=== PATIENT | male | born 1950 | race Caucasian/White ===

== ENCOUNTER 2019-01-18 08:35 | Outpatient (CLI) | payer OTHER ==
--- NOTE | 2019-01-19 11:26 | CARDIAC PROCEDURE NOTE ---
DATE OF SERVICE: 01/18/2019 Physician: Octavia Singh MD, [facility] INDICATION: Dyspnea on exertion. CARDIAC RISK FACTORS: Male gender, advanced age, family history of hypertension, hyperlipidemia, hypertension. PROCEDURE: After signing informed consent, the patient underwent a treadmill stress test with nuclear myocardial perfusion imaging. RESTING HEART RATE: 68. PEAK HEART RATE: 114 (75% predicted maximum heart rate for age). RESTING BLOOD PRESSURE: 124/70. PEAK BLOOD PRESSURE: 170/65. PROCEDURE: The patient exercised for 3 minutes 57 seconds on a modified-Jarred protocol treadmill stress test. The patient developed shortness of breath at the end of stage 1 and could only exercise for 57 seconds into stage 2. This was a symptom-limited test, as he developed shortness of breath and could not continue; the exercise was stopped before reaching target heart rate. Peak heart rate achieved was 114 (75% PMHR) and 2.9 METs. He had no chest pain. Oxygen saturation was 98% at peak on room air. RESTING EKG: Normal sinus rhythm, left atrial enlargement, early R/S transition. EKG AT PEAK: No new ST or T-wave changes. SUMMARY 1. Abnormal resting EKG. 2. Poor exercise tolerance. 3. No ischemic changes by EKG criteria on this treadmill stress test. 4. Nuclear images reported separately. 5. If imaging shows no ischemia, it may be due to insufficient heart rate response, and then the test should be repeated using pharmaceutical stress test with imaging. cc: Hillary Reyes MD TD: 01/18/2019 12:53 MTDD
--- NOTE | 2019-01-19 13:14 | Nuclear Medicine Report ---
Reason: DYSPNEA ON EXERTION Procedure Date: 01/18/2019 Accession Number: [id number] / [id number] Procedure: NM - Myocardial Perfusion STR/RST CPT Code: FULL RESULT: EXAM: MYOCARDIAL PERFUSION STRESS AND REST EXERCISE EXAM DATE: 01/18/2019 03:56 PM. CLINICAL HISTORY: Dyspnea on exertion. COMPARISON: None. TECHNIQUE: Patient given 10.3 mCi technetium 99m sestamibi IV for the rest portion of the study. Non-gated cardiac SPECT scintigraphy performed with multiplanar reformats. After this, patient was exercised on a Jarred treadmill protocol for 3 minutes 57 seconds, achieving a heart rate of 114 bpm which is 75% of the maximum predicted rate. Near peak exercise, patient given 43.6 mCi technetium 99m sestamibi IV. Subsequently, cardiac gated SPECT scintigraphy performed with multiplanar reformats, wall motion analysis, and left ventricular ejection fraction estimation. FINDINGS: There is mild decreased uptake in the inferior wall extending inferoseptal from mid ventricle to base on both stress and rest. Mild small fixed decreased uptake in the apical septum. No reversible defects are seen. Wall motion is uniform. Left ventricular ejection fraction estimated at 81%. IMPRESSION: 1. Moderate-sized focus of mild decreased uptake inferior wall extending inferoseptal from mid ventricle to base. This is fixed. Differential includes diaphragmatic defect versus old nontransmural infarct. 2. Small mild fixed defect apical septum, likely apical thinning. 3. No scintigraphic evidence of inducible ischemia. 4. Left ventricular ejection fraction estimated at 81%. RADIA
== END 2019-01-18 08:36 | disposition home or self-care (01) ==
LOC: DI 08:35
PROVIDERS: ATTEND Internal Medicine
DX: R94.31 Abnormal electrocardiogram [ECG] [EKG] (principal); R06.00 Dyspnea, unspecified; E78.5 Hyperlipidemia, unspecified; I10 Essential (primary) hypertension; Z82.49 Family history of ischemic heart disease and other diseases of the circulatory system
CPT/HCPCS: 78452; 93017; A9500

== ENCOUNTER 2020-07-29 23:55 | Outpatient (CLI) | payer MEDICARE, OTHER | END 2020-07-29 23:56 | disposition critical access hospital (66) | LOC: EMS 23:55 | PROVIDERS: ATTEND Surgery | DX: R50.9 Fever, unspecified (principal); R41.0 Disorientation, unspecified | CPT/HCPCS: A0425; A0427 ==

== ENCOUNTER 2020-07-30 00:10 | Emergency (ER) | payer MEDICARE, OTHER ==
--- NOTE | 2020-07-30 00:03 | ED Physician Documentation ---
History of Present Illness - Stated complaint Stated Complaint: WEAKNESS, FEVER - History obtained from History obtained from: Patient - Additonal information Additional information: 70-year-old male brought in by ambulance and his also is with him states that he is had a fever and a cough for the last 3 days and now is too weak to walk. Denies any other complaints reports he is otherwise healthy. Review of Systems Constitutional: reports: Fever Eyes: reports: Reviewed and negative Ears: reports: Reviewed and negative Nose: reports: Reviewed and negative Throat: reports: Reviewed and negative Cardiac: reports: Reviewed and negative Respiratory: reports: Cough GI: reports: Reviewed and negative : reports: Reviewed and negative Skin: reports: Reviewed and negative Musculoskeletal: reports: Reviewed and negative Neurologic: reports: Generalized weakness Psychiatric: reports: Reviewed and negative Endocrine: reports: Reviewed and negative Immunocompromised: reports: Reviewed and negative PD PAST MEDICAL HISTORY - Present Medications Home Medications: Ambulatory Orders Medication Instructions Recorded Confirmed Levothyroxine [Synthroid] 07/30/20 07/30/20 [place] Carbonate 300 mg PO QPM 07/30/20 07/30/20 Metoprolol Succinate 25 mg PO QPM 07/30/20 07/30/20 Nortriptyline [Pamelor] 50 mg PO HS 07/30/20 07/30/20 OLANZapine [Zyprexa] 15 PO QPM 07/30/20 - Allergies Allergies/Adverse Reactions: Allergies Allergy/AdvReac Type Severity Reaction Status Date / Time No Known Drug Allergies Allergy Verified 07/30/20 03:08 PD ED PE NORMAL - Vitals Vital signs reviewed: Yes - General General: Alert and oriented X 3, No acute distress, Well developed/nourished - HEENT HEENT: Atraumatic, PERRL, Moist mucous membranes, Pharynx benign - Neck Neck: Supple, no meningeal sign, No adenopathy, No JVD - Cardiac Cardiac: RRR, No murmur, Strong equal pulses - Respiratory Respiratory: No respiratory distress, Clear bilaterally - Abdomen Abdomen: Normal bowel sounds, Soft, Non tender, Non distended, No organomegaly, Other (No midline abdominal pulsatile mass) - Derm Derm: Warm and dry - Extremities Extremities: No deformity - Neuro Neuro: Alert and oriented X 3, 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, No motor deficit, No sensory deficit, Other (Generalized weakness but no pronator drift no unilateral weakness no focal deficits normal [id number] normal [id number] normal rapid alternating movements reflexes 2+ and symmetric throughout) - Psych Psych: Normal mood, Normal affect Results - Vitals Vitals: Vital Signs - 24 hr 07/30/20 07/30/20 07/30/20 00:35 03:12 03:33 Temperature 36.7 C Heart Rate 82 89 89 Respiratory 22 27 H 20 Rate Blood Pressure 138/76 H 134/79 H 133/75 H O2 Saturation 97 98 95 Oxygen O2 Source Room air - EKG (time done) 01:01 Rate: Other (no STEMI) - Labs Labs: Laboratory Tests 07/30/20 07/30/20 07/30/20 00:59 02:00 02:30 WBC 8.8 RBC 4.71 Hgb 13.0 L Hct 41.9 L MCV 89.0 MCH 27.6 MCHC 31.0 L RDW 13.9 Plt Count 190 MPV 10.2 Neut # (Auto) 7.0 H Lymph # (Auto) 0.8 L [place] # (Auto) 0.9 Eos # (Auto) 0.1 Baso # (Auto) 0.0 Absolute Nucleated RBC 0.00 Nucleated RBC % 0.0 PT INR APTT Sodium Potassium Chloride Carbon Dioxide Anion Gap BUN Creatinine Estimated GFR (MDRD) Glucose Lactic Acid Calcium Phosphorus Magnesium Total Bilirubin AST ALT Alkaline Phosphatase Total Creatine Kinase Troponin I High Sens B-Natriuretic Peptide Total Protein Albumin Globulin Albumin/Globulin Ratio Lipase TSH Urine Color YELLOW Urine Clarity CLEAR Urine pH 5.5 Ur Specific [place] 1.010 Urine Protein NEGATIVE Urine Glucose (UA) NEGATIVE Urine Ketones NEGATIVE Urine Occult Blood NEGATIVE Urine Nitrite NEGATIVE Urine Bilirubin NEGATIVE Urine Urobilinogen 0.2 (NORMAL) Ur Leukocyte Esterase NEGATIVE Ur Microscopic Review NOT INDICATED Urine Culture Comments NOT INDICATED Salicylates Acetaminophen Ethyl Alcohol Influenza A (Rapid) Negative Influenza B (Rapid) Negative 07/30/20 07/30/20 07/30/20 02:30 03:05 03:05 WBC RBC Hgb Hct MCV MCH MCHC RDW Plt Count MPV Neut # (Auto) Lymph # (Auto) [place] # (Auto) Eos # (Auto) Baso # (Auto) Absolute Nucleated RBC Nucleated RBC % PT 14.1 H INR 1.3 H APTT 27.0 Sodium 136 Potassium 4.2 Chloride 105 Carbon Dioxide 21 Anion Gap 10.0 BUN 11 Creatinine 1.2 Estimated GFR (MDRD) 60 L Glucose 125 H Lactic Acid Calcium 9.3 Phosphorus 3.0 Magnesium 2.1 Total Bilirubin 0.6 AST 25 ALT 16 Alkaline Phosphatase 81 Total Creatine Kinase 567 H Troponin I High Sens 5.1 B-Natriuretic Peptide Total Protein 7.2 Albumin 4.2 Globulin 3.0 Albumin/Globulin Ratio 1.4 Lipase 19 L TSH Urine Color Urine Clarity Urine pH Ur Specific [place] Urine Protein Urine Glucose (UA) Urine Ketones Urine Occult Blood Urine Nitrite Urine Bilirubin Urine Urobilinogen Ur Leukocyte Esterase Ur Microscopic Review Urine Culture Comments Salicylates < 6.0 Acetaminophen < 10 L Ethyl Alcohol < 5.0 Influenza A (Rapid) Influenza B (Rapid) 07/30/20 07/30/20 07/30/20 03:05 03:05 03:05 WBC RBC Hgb Hct MCV MCH MCHC RDW Plt Count MPV Neut # (Auto) Lymph # (Auto) [place] # (Auto) Eos # (Auto) Baso # (Auto) Absolute Nucleated RBC Nucleated RBC % PT INR APTT Sodium Potassium Chloride Carbon Dioxide Anion Gap BUN Creatinine Estimated GFR (MDRD) Glucose Lactic Acid 0.7 Calcium Phosphorus Magnesium Total Bilirubin AST ALT Alkaline Phosphatase Total Creatine Kinase Troponin I High Sens B-Natriuretic Peptide 52 Total Protein Albumin Globulin Albumin/Globulin Ratio Lipase TSH 0.95 Urine Color Urine Clarity Urine pH Ur Specific [place] Urine Protein Urine Glucose (UA) Urine Ketones Urine Occult Blood Urine Nitrite Urine Bilirubin Urine Urobilinogen Ur Leukocyte Esterase Ur Microscopic Review Urine Culture Comments Salicylates Acetaminophen Ethyl Alcohol Influenza A (Rapid) Influenza B (Rapid) PD MEDICAL DECISION MAKING - ED course Complexity details: reviewed old records, reviewed results, re-evaluated patient, d/w patient, d/w family ED course: 7-year-old male with generalized weakness and a fever at home he is afebrile here and well-appearing COVID screening test sent as well as chest x-ray which is unremarkable EKG is unremarkable lab work sent as well. Departure - Departure Disposition: 01 Home, Self Care Clinical Impression: Weakness, Cough Fever Qualifiers: Fever type: unspecified Qualified Code(s): R50.9 - Fever, unspecified Condition: Stable Instructions: ED Weakness UKO, ED Fever Unconf Cause Follow-Up: ARIADNE GONZALEZ MD [Primary Care Provider] - 07/30/20 Comments: Please follow-up with your primary care provider tomorrow for recheck. If you develop fever take either Tylenol or ibuprofen as needed for pain or fever. Return to the emergency department with any concerns.
[2020-07-30 01:03] LABS: BILIRUBIN,URINE NEGATIVE (NEGATIVE); GLUCOSE, URINE (UA) NEGATIVE (NEGATIVE); KETONES,URINE (UA) NEGATIVE (NEGATIVE); LEUKOCYTE ESTERASE, URINE NEGATIVE (NEGATIVE); NITRITE,URINE NEGATIVE (NEGATIVE); OCCULT BLOOD,URINE NEGATIVE (NEGATIVE); PH,URINE 5.5 PH (5.0-7.5); PROTEIN,URINE NEGATIVE (NEGATIVE); UROBILINOGEN,URINE 0.2 (NORMAL) E.U./dL (NORMAL)
[2020-07-30 01:04] LABS: CLARITY,URINE CLEAR (CLEAR)
[2020-07-30] MEDS ORDERED: SODIUM CHLORIDE 0.9% 1,000 ML IV STA (01:19)
[2020-07-30 02:52] LABS: BASOPHILS % (AUTO) 0.3 %; EOSINOPHILS # (AUTO) 0.1 10^3/uL (0.0-0.7); EOSINOPHILS % (AUTO) 0.9 %; LYMPHOCYTES # (AUTO) 0.8 10^3/uL (1.5-3.5); MEAN CORPUSCULAR HEMOGLOBIN 27.6 pg (27.0-31.0); MEAN PLATELET VOLUME 10.2 fL (7.4-11.4); MONOCYTES # (AUTO) 0.9 10^3/uL (0.0-1.0); MONOCYTES % (AUTO) 9.6 %; NEUTROPHILS % (AUTO) 79.5 %; PLT - PLATELET COUNT 190 10^3/uL (130-450); RED BLOOD COUNT 4.71 10^6/uL (4.70-6.10); RED CELL DISTRIBUTION WIDTH 13.9 % (12.0-15.0); WHITE BLOOD COUNT 8.8 x10^3/uL (4.8-10.8)
[2020-07-30 02:56] LABS: INR 1.3 (0.8-1.2); PT - PROTHROMBIN TIME 14.1 secs (9.9-12.6)
[2020-07-30 03:32] LABS: ACETAMINOPHEN < 10 ug/mL (10-30); ALBUMIN 4.2 g/dL (3.2-5.5); ALBUMIN/GLOBULIN RATIO 1.4 (1.0-2.2); ALKALINE PHOSPHATASE 81 IU/L (42-121); ALT ALANINE AMINOTRANSFERASE 16 IU/L (10-60); AST ASPARTATE AMINOTRANSFERASE 25 IU/L (10-42); BILIRUBIN,TOTAL 0.6 mg/dL (0.2-1.0); BUN - BLOOD UREA NITROGEN 11 mg/dL (6-20); CALCIUM 9.3 mg/dL (8.5-10.3); CARBON DIOXIDE - CO2 21 mmol/L (21-32); CHLORIDE 105 mmol/L (101-111); CK- CREATINE KINASE 567 IU/L (22-269); CREATININE 1.2 mg/dL (0.6-1.2); GLUCOSE 125 mg/dL (70-100); LIPASE 19 U/L (22-51); MAGNESIUM 2.1 mg/dL (1.7-2.8); SALICYLATE < 6.0 mg/dL; SODIUM 136 mmol/L (135-145); TOTAL PROTEIN 7.2 g/dL (6.7-8.2)
[2020-07-30 04:14] VITALS: BP 128/77
[2020-07-30 04:27] LABS: MUDS CUTOFF CONCENTRATIONS CUTOFF CONC BELOW:
[2020-07-30 04:40] LABS: AMPHETAMINE SCREEN,URINE NEGATIVE (NEGATIVE); BENZODIAZEPINES SCREEN, URINE NEGATIVE (NEGATIVE); COCAINE SCREEN URINE NEGATIVE (NEGATIVE); METHADONE SCREEN, URINE NEGATIVE (NEGATIVE); METHAMPHETAMINES SCREEN, URINE NEGATIVE (NEGATIVE); OPIATE SCREEN, URINE NEGATIVE (NEGATIVE); OXYCODONE SCREEN, URINE NEGATIVE (NEGATIVE); PROPOXYPHENE SCREEN, URINE NEGATIVE (NEGATIVE); TRICYCLIC ANTIDEPRESSANT,URINE POSITIVE (NEGATIVE)
--- NOTE | 2020-07-30 07:57 | XRAY Report ---
PROCEDURE: Chest 1 View X-Ray INDICATIONS: sob TECHNIQUE: One view of the chest was acquired. COMPARISON: None FINDINGS: Surgical changes and devices: None. Lungs and pleura: No pleural effusions or pneumothorax. Lungs are clear. Mediastinum: Mediastinal contours appear normal. Heart size is normal. Bones and chest wall: No suspicious bony lesions. Overlying soft tissues appear unremarkable. IMPRESSION: No acute cardiopulmonary disease process. Reviewed by: Melany Noble MD, PhD on 07/30/2020 7:56 AM PDT Approved by: Melany Noble MD, PhD on 07/30/2020 7:56 AM PDT Station ID: [id number]
== END 2020-07-30 04:15 | disposition home or self-care (01) ==
LOC: EDUNIT# → ED 00:10
DX: R53.1 Weakness (principal); R50.9 Fever, unspecified; R05 Cough; Z20.828 Contact with and (suspected) exposure to other viral communicable diseases
CPT/HCPCS: 36415; 71045; 80053; 81003; 82550; 83605; 83690; 83735; 83880; 84100; 84443; 84484; 85025; 85610; 85730; 87040; 87275; 87276; 93005; 99282; 99284; U0004; 80306; 80307; 80320; 80329; 81001; 87086

== ENCOUNTER 2022-10-22 17:41 | Emergency (ER) | payer MEDICARE, OTHER ==
--- NOTE | 2022-10-22 19:00 | ED Physician Documentation ---
History of Present Illness - Stated complaint Stated Complaint: GLF, HEAD PAIN - Chief complaint Chief Complaint: Neuro - Additonal information Additional information: 72-year-old male presents to the emergency department for evaluation of syncope versus ground-level fall. He reports that twice yesterday in the snow and ice he slipped. However today he was simply standing in his garage when he began to feel off balance and fell. He denies he is having chest pain or shortness of air. He does have a noted tremor in both upper extremities that he states started about 5 years ago and is gotten progressively worse. He denies any head ache, nausea, abdominal pain or vomiting. No diarrhea. No recent illness. Review of Systems Constitutional: denies: Fever, Chills Cardiac: reports: Reviewed and negative Respiratory: reports: Reviewed and negative GI: reports: Reviewed and negative : reports: Reviewed and negative Skin: reports: Reviewed and negative Musculoskeletal: reports: Reviewed and negative Neurologic: reports: Syncope, Other (Bilateral upper extremity tremor in both arms). denies: Generalized weakness, Focal weakness PD PAST MEDICAL HISTORY - Present Medications Home Medications: Ambulatory Orders Medication Instructions Recorded Confirmed Levothyroxine [Synthroid] 07/30/20 07/30/20 [place] Carbonate 300 mg PO QPM 07/30/20 07/30/20 Metoprolol Succinate 25 mg PO QPM 07/30/20 07/30/20 Nortriptyline [Pamelor] 50 mg PO HS 07/30/20 07/30/20 OLANZapine [Zyprexa] 15 PO QPM 07/30/20 - Allergies Allergies/Adverse Reactions: Allergies Allergy/AdvReac Type Severity Reaction Status Date / Time No Known Drug Allergies Allergy Verified 07/30/20 03:08 PD ED PE NORMAL - General General: Alert and oriented X 3, No acute distress, Well developed/nourished - HEENT HEENT: Atraumatic, Moist mucous membranes, Pharynx benign - Neck Neck: Supple, no meningeal sign, No adenopathy - Cardiac Cardiac: RRR, No murmur - Respiratory Respiratory: No respiratory distress - Abdomen Abdomen: Normal bowel sounds, Soft - Back Back: No CVA TTP, No spinal TTP - Derm Derm: Normal color, Warm and dry, No rash - Extremities Extremities: No deformity, No tenderness to palpate, Normal ROM s pain - Neuro Neuro: Alert and oriented X 3, 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 No: Prolonged QT QRS: Poor R wave progression Compare to prior EKG: Old EKG unavailable - Labs Labs: Laboratory Tests 10/22/22 10/22/22 19:10 19:10 WBC 9.8 RBC 5.39 Hgb 14.9 Hct 48.7 MCV 90.4 MCH 27.6 MCHC 30.6 L RDW 13.9 Plt Count 198 MPV 9.6 Neut # (Auto) 7.7 H Lymph # (Auto) 1.3 L [place] # (Auto) 0.7 Eos # (Auto) 0.1 Baso # (Auto) 0.0 Absolute Nucleated RBC 0.00 Nucleated RBC % 0.0 Sodium 137 Potassium 4.6 Chloride 102 Carbon Dioxide 28 Anion Gap 7.0 BUN 11 Creatinine 1.4 H Estimated GFR (MDRD) 50 L Glucose 112 H Calcium 9.5 Total Bilirubin 1.0 AST 20 ALT 14 Alkaline Phosphatase 91 Total Protein 8.0 Albumin 4.3 Globulin 3.7 Albumin/Globulin Ratio 1.2 Lipase 23 - Rads (name of study) cervical CT Radiology: Final report received (No acute cervical spine fracture or dislocation. Degenerative disc disease throughout the cervical spine) CT head Radiology: Final report received (No CT evidence of acute intracranial abnormalities. No acute skull fracture.) PD Medical Decision Making - ED course Complexity details: reviewed results, re-evaluated patient, considered differential, d/w patient ED course: This is a 72-year-old male that presents to the emergency department for evaluation after multiple falls over the last 2 days. He did have 2 falls in the snow yesterday without loss of consciousness but today he was simply standing in his garage and he report he became unbalanced and fell striking his head on concrete again without loss of consciousness. Patient is not able to describe the fall well and I am unclear whether this was a fainting episode or not. I did proceed to get an EKG that was sinus rhythm though there was some artifact due to persistent bilateral upper extremity arm tremor. He reports he has had this tremor for about 5 years. I did obtain CBC and electrolytes and found no acute worrisome findings. Orthostatics were completed. Given multiple falls over the last few days a CT of his head and neck were completed without acute findings. I have advised this patient to have close follow-up with his primary care provider. He may benefit from an outpatient echocardiogram. However on exam he has no acute focal deficits and he has a very steady gait. He is discharged home in stable condition Departure - Departure Disposition: 01 Home, Self Care Clinical Impression: Ground-level fall, Tremor observed on examination Condition: Stable Record reviewed to determine appropriate education?: Yes Comments: Gerber you came to the emergency department today because you had fallen a few times in the snow the last few days we also had a fall in your garage. It was not clear to me whether you fainted or whether this was a mechanical fall. We did do a CT of your head and neck and did not show any findings. We did complete a CBC and electrolytes and there were no worrisome findings though you do have some mild chronic kidney disease which is essentially unchanged from baseline. We completed an EKG and you are in sinus rhythm. We checked your vital signs in different positions and find that you do not have a decrease in blood pressure with standing. You do have a tremor in both your arms that seems to come and go I would like you to discuss this with your primary doctor. You may also benefit from evaluation with an echocardiogram to make sure your heart function is normal. Return immediately to the ER if you have a return of worsening symptoms
--- NOTE | 2022-10-22 19:01 | CT Report ---
PROCEDURE: CERVICAL SPINE WO INDICATIONS: multiple GLF TECHNIQUE: Noncontrast 3 mm thick sections acquired from the skull base to the T4 level. Sagittal and coronal r eformats were then constructed. For radiation dose reduction, the following was used: automated exp osure control, adjustment of mA and/or kV according to patient size. COMPARISON: None. FINDINGS: Image quality: Excellent. Bones: No fractures or dislocations. Straightening of normal cervical lordosis is seen. Loss of disc height, degenerative endplate changes and mild dorsal disc osteophyte complex formation throughout c ervical spine is seen causing [id number] central canal stenosis and bilateral neural foraminal narrowing most notably at C5-6 and C6-7 levels. Visualized superior ribs are intact. Soft tissues: Prevertebral soft tissues are normal in thickness. No paravertebral hematomas. No ap ical pneumothoraces. IMPRESSION: 1. No acute cervical spine fracture or dislocation. 2. Degenerative disc disease throughout cervical spine as above. Reviewed by: Kaleb Cortez MD on 10/22/2022 6:59 PM PST Approved by: Kaleb Cortez MD on 10/22/2022 6:59 PM PST Station ID: [id number]
--- NOTE | 2022-10-22 19:02 | CT Report ---
PROCEDURE: HEAD WO INDICATIONS: multiple GLF TECHNIQUE: Noncontrast 4.5 mm thick angled axial sections acquired from the foramen magnum to the vertex. For r adiation dose reduction, the following was used: automated exposure control, adjustment of mA and/or kV according to patient size. COMPARISON: None. FINDINGS: Image quality: Excellent. CSF spaces: Basal cisterns are patent. No extra-axial fluid collections. Ventricles are normal in size and shape. Brain: No intracranial bleeds or masses. There is cerebral volume loss for age, with resultant viral tricular and sulcal prominence. There are periventricular and deep white matter chronic small vessel ischemic changes. There is intracranial internal carotid artery atherosclerosis. Skull and face: Calvarium and visualized facial bones are intact, without suspicious lesions. Sinuses: Visualized sinuses and mastoids are clear. IMPRESSION: 1. No CT evidence of acute intracranial abnormalities. No acute skull fracture. 2. Age related volume loss and mild white matter chronic small vessel ischemic changes. Reviewed by: Kaleb Cortez MD on 10/22/2022 7:01 PM PST Approved by: Kaleb Cortez MD on 10/22/2022 7:01 PM PST Station ID: [id number]
[2022-10-22 19:15] LABS: BASOPHILS % (AUTO) 0.3 %; EOSINOPHILS # (AUTO) 0.1 10^3/uL (0.0-0.7); EOSINOPHILS % (AUTO) 0.9 %; HCT - HEMATOCRIT 48.7 % (42.0-52.0); HGB - HEMOGLOBIN 14.9 g/dL (14.0-18.0); LYMPHOCYTES # (AUTO) 1.3 10^3/uL (1.5-3.5); LYMPHOCYTES % (AUTO) 13.5 %; MEAN CORPUSCULAR HEMOGLOBIN 27.6 pg (27.0-31.0); MEAN CORPUSCULAR HGB CONC 30.6 g/dL (32.0-36.0); MEAN CORPUSCULAR VOLUME 90.4 fL (80.0-94.0); MEAN PLATELET VOLUME 9.6 fL (7.4-11.4); MONOCYTES # (AUTO) 0.7 10^3/uL (0.0-1.0); MONOCYTES % (AUTO) 6.8 %; NEUTROPHILS # (AUTO) 7.7 10^3/uL (1.5-6.6); NEUTROPHILS % (AUTO) 78.1 %; PLT - PLATELET COUNT 198 10^3/uL (130-450); RED BLOOD COUNT 5.39 10^6/uL (4.70-6.10); RED CELL DISTRIBUTION WIDTH 13.9 % (12.0-15.0); WHITE BLOOD COUNT 9.8 x10^3/uL (4.8-10.8)
[2022-10-22 19:27] LABS: ALBUMIN 4.3 g/dL (3.2-5.5); ALBUMIN/GLOBULIN RATIO 1.2 (1.0-2.2); CALCIUM 9.5 mg/dL (8.5-10.3); CREATININE 1.4 mg/dL (0.6-1.2); POTASSIUM 4.6 mmol/L (3.5-5.0)
[2022-10-22 19:49] VITALS: BP 144/103
== END 2022-10-22 19:56 | disposition home or self-care (01) ==
LOC: ED 17:41
DX: S09.90XA Unspecified injury of head, initial encounter (principal); W18.30XA Fall on same level, unspecified, initial encounter; Y92.008 Other place in unspecified non-institutional (private) residence as the place of occurrence of the external cause; R25.1 Tremor, unspecified; Z91.81 History of falling; N18.9 Chronic kidney disease, unspecified
CPT/HCPCS: 36415; 80053; 83690; 85025; 93005; 99284

== ENCOUNTER 2022-12-08 12:37 | Outpatient (CLI) | payer MEDICARE, OTHER ==
[2022-12-08] MEDS ORDERED: GADOBUTROL 10 MMOL/10 ML VIAL ONE (12:48)
[2022-12-08] MEDS ORDERED: GADOBUTROL 10 MMOL/10 ML VIAL IVP ONE (16:14)
--- NOTE | 2022-12-08 17:37 | MRI Report ---
PROCEDURE: BRAIN W/WO INDICATIONS: UNSTEADINESS ON FEET CONTRAST: gadavist 9.9ml TECHNIQUE: Noncontrast axial T1 spin echo, axial T2 fast spin echo, sagittal and axial FLAIR, coronal T2 fast sp in echo, axial gradient echo, axial diffusion and ADC through the brain. After the administration of contrast, axial and coronal T1 spin echo with fat saturation through the brain. COMPARISON: None. FINDINGS: Image quality: Excellent. CSF spaces: Basal cisterns are patent. No extra-axial fluid collections. Ventricles are normal in size and shape. Brain: No midline shift. No intracranial bleeds or masses. No abnormal intracranial enhancement. There is cerebral volume loss for age. Diffusion-weighted images demonstrate no acute infarct. Norm al intravascular flow voids are present. Multifocal white matter chronic ischemic change present. Skull and face: Calvarial marrow is normal in signal. Orbits appear normal. Sinuses: Sinuses and mastoids appear clear. IMPRESSION: Atrophy and chronic ischemic change without intracranial infarct, hemorrhage or mass lesion Reviewed by: Liborio Zavala MD on 12/08/2022 4:35 PM [place] Approved by: Liborio Zavala MD on 12/08/2022 4:35 PM [place] Station ID: [id number]
== END 2022-12-08 12:38 | disposition home or self-care (01) ==
LOC: DI 12:37
PROVIDERS: ATTEND Student in an Organized Health Care Education/Training Program
DX: R26.81 Unsteadiness on feet (principal); I67.82 Cerebral ischemia
CPT/HCPCS: 70553; A9585

== ENCOUNTER 2023-05-03 18:30 | Outpatient (CLI) | payer MEDICARE, OTHER | END 2023-05-03 23:59 | disposition critical access hospital (66) | LOC: EMS 18:30 | DX: R42 Dizziness and giddiness (principal); R51.9 Headache, unspecified; I10 Essential (primary) hypertension; R26.81 Unsteadiness on feet | CPT/HCPCS: A0425; A0429 ==

== ENCOUNTER 2023-05-03 18:50 | Emergency (ER) | payer MEDICARE, OTHER ==
[2023-05-03] MEDS: SODIUM CHLORIDE 0.9% 1,000 ML IV STA ×2 (19:27→20:45)
[2023-05-03 19:35] LABS: BASOPHILS % (AUTO) 0.6 %; EOSINOPHILS # (AUTO) 0.2 10^3/uL (0.0-0.7); EOSINOPHILS % (AUTO) 2.5 %; HCT - HEMATOCRIT 42.2 % (42.0-52.0); HGB - HEMOGLOBIN 13.5 g/dL (14.0-18.0); LYMPHOCYTES # (AUTO) 1.6 10^3/uL (1.5-3.5); LYMPHOCYTES % (AUTO) 22.8 %; MEAN CORPUSCULAR HEMOGLOBIN 29.3 pg (27.0-31.0); MEAN CORPUSCULAR VOLUME 91.7 fL (80.0-94.0); MEAN PLATELET VOLUME 9.4 fL (7.4-11.4); MONOCYTES # (AUTO) 0.6 10^3/uL (0.0-1.0); MONOCYTES % (AUTO) 8.4 %; NEUTROPHILS # (AUTO) 4.7 10^3/uL (1.5-6.6); NEUTROPHILS % (AUTO) 65.4 %; PLT - PLATELET COUNT 201 10^3/uL (130-450); RED CELL DISTRIBUTION WIDTH 13.2 % (12.0-15.0); WHITE BLOOD COUNT 7.2 x10^3/uL (4.8-10.8)
[2023-05-03 19:48] LABS: ALBUMIN 3.9 g/dL (3.2-5.5); ALBUMIN/GLOBULIN RATIO 1.3 (1.0-2.2); BILIRUBIN,TOTAL 0.5 mg/dL (0.2-1.0); CALCIUM 8.9 mg/dL (8.5-10.3); CREATININE 1.2 mg/dL (0.6-1.2); MAGNESIUM 2.2 mg/dL (1.7-2.8); POTASSIUM 4.6 mmol/L (3.5-5.0); TOTAL PROTEIN 6.9 g/dL (6.7-8.2)
[2023-05-03 20:04] LABS: LITHIUM 0.12 mmol/L
--- NOTE | 2023-05-03 20:36 | ED Physician Documentation ---
History of Present Illness - Stated complaint Stated Complaint: DIZZY/LIGHTHEADED - Chief complaint Chief Complaint: General - History obtained from History obtained from: Patient, Family, EMS - Additonal information Additional information: The patient comes to the emergency department with chief complaint of nausea, lightheadedness, and dizziness/spinning sensation over the last several days. Patient states he developed a vomiting type illness about a week ago and has felt as though he was "floating" on and off since. The patient denies any syncopal episodes. No dyspnea or chest pain. He is no longer vomiting but does state that whenever he feels the spinning sensation, he notices an uptick in his nausea. He denies fever or chills. Nobody else at home has been sick. The patient has no cardiac or lung history he states. No new medications. No other complaints at this time. PD PAST MEDICAL HISTORY - Present Medications Home Medications: Ambulatory Orders Medication Instructions Recorded Confirmed Levothyroxine [Synthroid] 07/30/20 07/30/20 [place] Carbonate 300 mg PO QPM 07/30/20 07/30/20 Metoprolol Succinate 25 mg PO QPM 07/30/20 07/30/20 Nortriptyline [Pamelor] 50 mg PO HS 07/30/20 07/30/20 OLANZapine [Zyprexa] 15 PO QPM 07/30/20 Meclizine HCl [Motion Sickness] 50 mg PO Q6H PRN #25 tablet 05/03/23 - Allergies Allergies/Adverse Reactions: Allergies Allergy/AdvReac Type Severity Reaction Status Date / Time No Known Drug Allergies Allergy Verified 05/03/23 19:03 PD ED PE NORMAL - Vitals Vital signs reviewed: Yes - General General: Alert and oriented X 3, No acute distress, Well developed/nourished, Other (Well-appearing male in no apparent distress.) - HEENT HEENT: Atraumatic, PERRL, EOMI, Moist mucous membranes - Neck Neck: Supple, no meningeal sign - Cardiac Cardiac: RRR, No murmur, Strong equal pulses - Respiratory Respiratory: No respiratory distress, Clear bilaterally - Abdomen Abdomen: Soft, Non tender, Non distended - Derm Derm: Normal color, Warm and dry, No rash - Extremities Extremities: No deformity, No edema - Neuro Neuro: Alert and oriented X 3, Other (Grossly intact) - Psych Psych: Normal mood, Normal affect Results - Vitals Vitals: Oxygen O2 Source Room air - Labs Labs: Laboratory Tests 05/03/23 05/03/23 05/03/23 19:30 19:30 19:30 WBC 7.2 RBC 4.60 L Hgb 13.5 L Hct 42.2 MCV 91.7 MCH 29.3 MCHC 32.0 RDW 13.2 Plt Count 201 MPV 9.4 Neut # (Auto) 4.7 Lymph # (Auto) 1.6 Grimes # (Auto) 0.6 Eos # (Auto) 0.2 Baso # (Auto) 0.0 Absolute Nucleated RBC 0.00 Nucleated RBC % 0.0 Sodium 138 Potassium 4.6 Chloride 107 Carbon Dioxide 25 Anion Gap 6.0 BUN 10 Creatinine 1.2 Estimated GFR (MDRD) 60 L Glucose 107 H Calcium 8.9 Magnesium 2.2 Total Bilirubin 0.5 AST 26 ALT 20 Alkaline Phosphatase 80 Total Protein 6.9 Albumin 3.9 Globulin 3.0 Albumin/Globulin Ratio 1.3 TSH Last Dose Date UNKNOWN Last Dose Time UNKNOWN Chassell 0.12 05/03/23 19:30 WBC RBC Hgb Hct MCV MCH MCHC RDW Plt Count MPV Neut # (Auto) Lymph # (Auto) Grimes # (Auto) Eos # (Auto) Baso # (Auto) Absolute Nucleated RBC Nucleated RBC % Sodium Potassium Chloride Carbon Dioxide Anion Gap BUN Creatinine Estimated GFR (MDRD) Glucose Calcium Magnesium Total Bilirubin AST ALT Alkaline Phosphatase Total Protein Albumin Globulin Albumin/Globulin Ratio TSH 2.13 Last Dose Date Last Dose Time Chassell PD Medical Decision Making - ED course Complexity details: reviewed results, re-evaluated patient, considered differential, d/w patient ED course: I suspected vertigo although this patient did have a component of lightheadedness as well. He had been started on a liter of fluid by EMS and this was continued in the emergency department. He was worked up with laboratory studies including CBC, ER abdominal panel, and lithium level and TSH, given that he is on both lithium and Synthroid. He was treated symptomatically with Zofran and meclizine. The pt's labs were unremarkable on my review, and pt was feeling much better after 2 liters of fluid and the above meds. I felt he was stable for d/c home. We have discussed the usual indications for return. Departure - Departure Disposition: Home, Self Care Clinical Impression: Vertigo Condition: Stable Instructions: ED BPV Vertigo Prescriptions: Meclizine HCl [Motion Sickness] 50 mg PO Q6H PRN #25 tablet PRN Reason: Vertigo Comments: Your laboratory studies look good. You have been treated for vertigo in the emergency department as well as dehydration and are doing much better. A prescription for the medication we gave you today for your dizziness has been electronically transmitted to the [facility] pharmacy in [place], as this is the only pharmacy open tomorrow. Please pick remover your medicine first thing in the morning in case you have more dizziness. Sometimes the dizziness lasts only for a few days but sometimes it can last for weeks. Please follow-up with your primary doctor for reevaluation if you are not feeling better in a couple of weeks. Discharge Date/Time: 05/03/23 23:19
[2023-05-03] MEDS: MECLIZINE 12.5 MG TABLET PO STA (20:45)
[2023-05-03] MEDS: ONDANSETRON 4 MG/2 ML VIAL IVP STA (20:45)
[2023-05-03 23:24] VITALS: BP 144/88
== END 2023-05-03 23:19 | disposition home or self-care (01) ==
LOC: EDUNIT# → ED 18:50
DX: R42 Dizziness and giddiness (principal)
CPT/HCPCS: 36415; 80053; 80178; 83735; 84443; 85025; 93005; 96374; 99283; 99284; A9270

== ENCOUNTER 2025-03-17 03:31 | Inpatient (IN) ==
--- NOTE | 2025-03-17 03:39 | ED Physician Documentation ---
History of Present Illness Stated complaint Stated Complaint: GLF Chief complaint Chief Complaint: Fever History obtained from History obtained from: Patient and EMS Additonal information Additional information: 74-year-old male with history of Parkinson's, hypothyroidism, high blood pressure,Presents status post fall tonight. Fever, cough, shortness of breath Meds/Allgy Home Medications Ambulatory Orders Medication Instructions Recorded Confirmed levothyroxine 25 mcg tablet 07/30/20 07/30/20 lithium carbonate 300 mg capsule 300 mg PO QPM 0 07/30/20 metoprolol succinate 25 mg 25 mg PO QPM 07/30/2007/30 tablet,extended release 24 hr nortriptyline 25 mg capsule 50 mg PO HS 07/30/2007/30 olanzapine 15 mg tablet (Zyprexa) 15 PO QPM 07/30/20 meclizine 25 mg tablet (Motion 50 mg (2 x 25 mg) PO Q6 H PRN 05/03/23 Sickness (meclizine)) Vertigo #25 tabs Allergies Allergies Allergy/AdvReac Type Severity Reaction Status Date / Time No Known Drug Allergies Allergy Verified 05/03/23 19:03 PFSH Active Problems All Active Problems (Updated 03/17/25 @ 05:53 by Millicent Damian MD) Pneumonia (Acute) Pneumonia (Acute) Sepsis (Acute) Fall (Acute) Social History Social History Relationship: Exam Exam Vital Signs: Vital Signs x48h Temp Pulse Resp BP Pulse Ox 03/17/25 05:35 91 16 141/83 H 90 L 03/17/25 04:31 93 20 145/71 H 91 L 03/17/25 03:39 39.6 C H 97 20 157/84 H 91 L Constitutional normal general appearance, no apparent distress and average body habitus HENMT normocephalic, head/scalp atraumatic and oropharynx normal Eyes PERRL and EOMs intact bilaterally Neck/C-Spine visual inspection normal and cervical spine nontender Chest inspection of chest normal Respiratory breath sounds equal bilaterally, normal respiratory effort and clear to auscultation bilaterally Cardiovascular regular rhythm noted Tachycardic rate Gastrointestinal abdomen normal to inspection and nontender to palpation Genitourinary no CVA tenderness Back/Pelvis spine normal to inspection Neurology GCS 15 Results Vitals Vitals: Vital Signs - 24 hr 03/17/25 03:39 05/17/25 03:43 03/17/25 04:31 Temperature 39.6 C H Temperature Source Oral Pulse Rate 97 93 Respiratory Rate 20 20 Blood Pressure 157/84 H 145/71 H O2 Saturation 91 L 91 L O2 Source Room air Room air Pain Intensity 2 0 03/17/25 05:02 03/17/25 05:35 Temperature Temperature Source Pulse Rate 91 Respiratory Rate 16 Blood Pressure 141/83 H O2 Saturation 90 L O2 Source Room air Pain Intensity 0 0 Oxygen O2 Source Room air Labs Labs: Laboratory Tests 03/17/25 03/17/25 03/17/25 03:38 03:59 04:00 WBC 13.5 H RBC 4.65 L Hgb 13.0 L Hct 42.2 MCV 90.8 MCH 28.0 MCHC 30.8 L RDW 13.8 Plt Count 204 MPV 9.7 Neut # (Auto) 11.9 H Lymph # (Auto) 0.7 L Glenn # (Auto) 0.7 Eos # (Auto) 0.1 Baso # (Auto) 0.0 Absolute Nucleated RBC 0.00 Nucleated RBC % 0.0 VBG pH 7.527 H VBG pCO2 25.4 L VBG pO2 78.4 H VBG HCO3 21.3 L VBG Total CO2 22.0 L VBG O2 Saturation 97.0 H VBG Base Excess -1.7 Sodium 136 Potassium 4.4 Chloride 103 Carbon Dioxide 27 Anion Gap 6.0 BUN 18 Creatinine 1.5 H Estimated GFR (MDRD) 46 L Glucose 119 H Lactic Acid 1.3 Calcium 9.5 Total Bilirubin 0.4 AST 24 ALT 16 Alkaline Phosphatase 100 Total Protein 7.4 Albumin 4.3 Globulin 3.1 Albumin/Globulin Ratio 1.4 Urine Color YELLOW Urine Clarity CLEAR Urine pH 7.0 Ur Specific [place] 1.010 Urine Protein NEGATIVE Urine Glucose (UA) NEGATIVE Urine Ketones NEGATIVE Urine Occult Blood NEGATIVE Urine Nitrite NEGATIVE Urine Bilirubin NEGATIVE Urine Urobilinogen 0.2 (NORMAL) Ur Leukocyte Esterase NEGATIVE Urine RBC 0-5 Urine WBC 0-3 Ur Squamous Epith Cells NONE SEEN Urine Bacteria None Seen Urine Culture Comments NOT INDICATED Nasal Adenovirus (PCR) NOT DETECTED Nasal B. parapertussis DNA (PCR) NOT DETECTED Nasal Coronavir 229E PCR NOT DETECTED Nasal Coronavir HKU1 PCR NOT DETECTED Nasal Coronavir NL63 PCR NOT DETECTED Nasal Coronavir OC43 PCR NOT DETECTED Nasal Enterovir/Rhinovir PCR NOT DETECTED Nasal Influenza B PCR NOT DETECTED Nasal Influenza A PCR NOT DETECTED Nasal Parainfluen 1 PCR NOT DETECTED Nasal Parainfluen 2 PCR NOT DETECTED Nasal Parainfluen 3 PCR NOT DETECTED Nasal Parainfluen 4 PCR NOT DETECTED Nasal RSV (PCR) NOT DETECTED Nasal B.pertussis DNA PCR NOT DETECTED Nasal C.pneumoniae (PCR) NOT DETECTED Cole Human Metapneumo PCR NOT DETECTED Nasal M.pneumoniae (PCR) NOT DETECTED Nasal SARS-CoV-2 (PCR) NOT DETECTED PD Medical Decision Making ED course ED course: 74-year-old man presents to the emergency department status post fall with fever, cough, shortness of breath, found to be hypoxic to 91% room air here in the emergency department. Improvement with oxygen administration.Sepsis workup undertaken including 1500 cc IV fluids and 650 of Tylenol orally. Also ordered head CT given history of fall. CT spine cleared upon arrival with no tenderness and full range of motion of cervical spine. pneumonia on cxr, plan to admit given hypoxia and sepsis. Discharge Plan Discharge Patient Disposition: [facility] DC/Xfer Condition: Fair Clinical Impression: Fall, Sepsis, Pneumonia Prescriptions: No Action levothyroxine 25 MCG tablet nortriptyline 25 MG capsule 50 mg PO HS lithium carbonate 300 MG capsule 300 mg PO QPM olanzapine [Zyprexa] 15 MG tablet 15 PO QPM metoprolol succinate 25 MG tablet extended release 24 hr 25 mg PO QPM meclizine [Motion Sickness (meclizine)] 25 MG tablet 50 mg PO Q6H PRN (Reason: Vertigo) Qty: 25 0RF Print Language: Thai
[2025-03-17] MEDS: ACETAMINOPHEN 325 MG TABLET PO STA (03:43)
[2025-03-17] MEDS: SODIUM CHLORIDE 0.9% 1,500 ML IV ONE (03:44)
[2025-03-17 03:47] LABS: BASOPHILS % (AUTO) 0.2 %; EOSINOPHILS # (AUTO) 0.1 10^3/uL (0.0-0.7); EOSINOPHILS % (AUTO) 0.7 %; HCT - HEMATOCRIT 42.2 % (42.0-52.0); LYMPHOCYTES # (AUTO) 0.7 10^3/uL (1.5-3.5); LYMPHOCYTES % (AUTO) 5.4 %; MEAN CORPUSCULAR HGB CONC 30.8 g/dL (32.0-36.0); MEAN CORPUSCULAR VOLUME 90.8 fL (80.0-94.0); MEAN PLATELET VOLUME 9.7 fL (7.4-11.4); MONOCYTES # (AUTO) 0.7 10^3/uL (0.0-1.0); MONOCYTES % (AUTO) 5.3 %; NEUTROPHILS # (AUTO) 11.9 10^3/uL (1.5-6.6); PLT - PLATELET COUNT 204 10^3/uL (130-450); RED BLOOD COUNT 4.65 10^6/uL (4.70-6.10); RED CELL DISTRIBUTION WIDTH 13.8 % (12.0-15.0); WHITE BLOOD COUNT 13.5 x10^3/uL (4.8-10.8)
--- OUTSIDE RECORDS SUMMARY | 2025-03-17 04:00 | EXTERNAL MEDICAL SUMMARY RPT | Continuity of Care Document ---
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 Phone Ashok Thakkar Unavailable Unavailable Allergies and Intolerances date description facility reaction severity 2024-12-18 09:31:15 [facility] (no reactio n) (no severity) 2024-12-18 09:31:15 [facility] (no reactio n) (no severity) 2024-12-18 09:31:15 [facility] (no reactio n) (no severity) 2024-12-18 09:31:15 [facility] (no reactio n) (no severity) Problems date description facility 2024-12-18 00:00 [facility] 2025-02-28 15:58 Tinea un[facility]ium [facility] 2025-03-01 [facility] Results/Labs test date facility value unit notes Result panel 1 BILIRUBIN,DIRECT 2025-02-28 16:08 [facility] < 0.10 m g/dl As of May 2023 testing method has changed, this may include reference ranges. BILIRUBIN,TOTAL 2025-02-28 16:08 [facility] 0.5 mg /dl As of May 2023 testing method has changed, this may include reference ranges. ALT ALANINE AMINOTRANSFERASE 2025-02-28 16:08 [facility] 10 iu/l As of May 2023 testing method has changed, this may include reference ranges. AST ASPARTATE AMINOTRANSFERASE 2025-02-28 16:08 [facility] 16 iu/l As of May 2023 testing method has changed, this may include reference ranges. GLOBULIN 2025-02-28 16:08 [facility] 3.1 g/dl (missing) ALBUMIN 2025-02-28 16:08 [facility] 4.3 g/dl As of May 2023 testing method has changed, this may include reference ranges. TOTAL PROTEIN 2025-02-28 16:08 [facility] 7.4 g/dl As of May 2023 testing method has changed, this may include reference ranges. ALKALINE PHOSPHATASE 2025-02-28 16:08 [facility] 88 iu/l As of May 2023 testing method has changed, this may include reference ranges. Social History date description facility 2024-12-18 00:00 Ex-smoker (finding) [facility] Vital Signs date measurement value units 2024-12-18 00:00 BMI 31.9 kg/m2 2024-12-18 00:00 BP_diastolic 82 mmHg 2024-12-18 00:00 BP_systolic 130 mmHg 2024-12-18 00:00 heart_rate 71 /min 2024-12-18 00:00 height_metric 180.34 cm 2024-12-18 00:00 height_standard 71 in 2024-12-18 00:00 o2_saturation 96 % 2024-12-18 00:00 temperature_metric 36.11 C 2024-12-18 00:00 temperature_standard 97 F 2024-12-18 00:00 weight_metric 103.87 kg 2024-12-18 00:00 weight_standard 228.99 lb
[2025-03-17 04:05] LABS: ALBUMIN 4.3 g/dL (3.2-5.5); ALBUMIN/GLOBULIN RATIO 1.4 (1.0-2.2); BILIRUBIN,TOTAL 0.4 mg/dL (0.2-1.0); CALCIUM 9.5 mg/dL (8.5-10.3); CREATININE 1.5 mg/dL (0.6-1.3); POTASSIUM 4.4 mmol/L (3.5-4.5); TOTAL PROTEIN 7.4 g/dL (6.4-8.9)
[2025-03-17 04:11] LABS: BILIRUBIN,URINE NEGATIVE (NEGATIVE); GLUCOSE, URINE (UA) NEGATIVE (NEGATIVE); KETONES,URINE (UA) NEGATIVE (NEGATIVE); LEUKOCYTE ESTERASE, URINE NEGATIVE (NEGATIVE); NITRITE,URINE NEGATIVE (NEGATIVE); OCCULT BLOOD,URINE NEGATIVE (NEGATIVE); PROTEIN,URINE NEGATIVE (NEGATIVE); UROBILINOGEN,URINE 0.2 (NORMAL) E.U./dL (NORMAL)
[2025-03-17 04:12] LABS: VBG BASE EXCESS -1.7 mmol/L (-2 - +2); VBG PCO2 25.4 mmHg (41-51); VBG PH 7.527 (7.31-7.41); VBG PO2 78.4 mmHg (25-47)
[2025-03-17 04:12] LABS: CLARITY,URINE CLEAR (CLEAR)
[2025-03-17 04:32] LABS: BACTERIA,URINE None Seen /HPF (None Seen); RBC,URINE 0-5 /HPF (0-5); SQUAMOUS EPITHELIAL CELL,UR NONE SEEN (<= Few); WBC,URINE 0-3 /HPF (0-3)
[2025-03-17 04:36] LABS: B. PARAPERTUSSIS- RESP PCR PAN NOT DETECTED; B. PERTUSSIS- RESP PCR PANEL NOT DETECTED; C. PNEUMONIAE- RESP PCR PANEL NOT DETECTED; CORONAVIRUS 229E-RESP PCR NOT DETECTED; CORONAVIRUS HKU1-RESP PCR NOT DETECTED; CORONAVIRUS NL63-RESP PCR NOT DETECTED; CORONAVIRUS OC43-RESP PCR NOT DETECTED; HUMAN METAPNEUMOVIRUS NOT DETECTED; INFLUENZA A- RESP PCR PANEL NOT DETECTED; INFLUENZA B - RESP PCR PANEL NOT DETECTED; M. PNEUMONIAE- RESP PCR PANEL NOT DETECTED; PARAINFLUENZA VIRUS 1 NOT DETECTED; PARAINFLUENZA VIRUS 2 NOT DETECTED; PARAINFLUENZA VIRUS 4 NOT DETECTED; RHINOVIRUS/ENTEROVIRUS NOT DETECTED; RSV- RESP PCR PANEL NOT DETECTED; SARS-CoV-2 -RESP PCR PANEL NOT DETECTED
[2025-03-17] MEDS ORDERED: cefTRIAXone 2 GM VIAL ONE (04:51)
[2025-03-17] MEDS: cefTRIAXone 2 GM in SODIUM CHLORIDE 0.9% MINIBAG 100 ML IV STA (04:57)
[2025-03-17] MEDS: AZITHROMYCIN INJ 500 MG in SODIUM CHLORIDE 0.9% 250 ML IV STA (05:08)
[2025-03-17] MEDS ORDERED: IPRATROPIUM/ALBUTEROL 3 ML NEB INH PRN (05:57)
--- OUTSIDE RECORDS SUMMARY | 2025-03-17 06:02 | EXTERNAL MEDICAL SUMMARY RPT | Continuity of Care Document ---
Author Organization [place] Address [address] [id number] Phone Care Team Providers Care Sheet Metal Roofer Name Role Phone Ashok Thakkar Unavailable Unavailable Allergies and Intolerances date description facility reaction severity 2024-12-18 09:31:15 [facility] (no reactio n) (no severity) 2024-12-18 09:31:15 [facility] (no reactio n) (no severity) 2024-12-18 09:31:15 [facility] (no reactio n) (no severity) 2024-12-18 09:31:15 [facility] (no reactio n) (no severity) Problems date description facility 2024-12-18 00:00 [facility] 2025-02-28 15:58 Tinea unguium [facility] 2025-03-01 00:04 Tinea unguium [facility] 2025-03-17 05:53 Pneumonia, unspecified organism [facility] Results/Labs test date facility value unit notes Result panel 1 BILIRUBIN,DIRECT 2025-02-28 16:08 [facility] < 0.10 m g/dl As of May 2023 testing method has changed, this may include reference ranges. BILIRUBIN,TOTAL 2025-02-28 16:08 [facility] 0.5 mg /dl As of May 2023 testing method has changed, this may include reference ranges. ALT ALANINE AMINOTRANSFERASE 2025-02-28 16:08 [facility] 10 iu/l As of May 2023 testing method has changed, this may include reference ranges. AST ASPARTATE AMINOTRANSFERASE 2025-02-28 16:08 [facility] 16 iu/l As of May 2023 testing method has changed, this may include reference ranges. GLOBULIN 2025-02-28 16:08 [facility] 3.1 g/dl (missing) ALBUMIN 2025-02-28 16:08 [facility] 4.3 g/dl As of May 2023 testing method has changed, this may include reference ranges. TOTAL PROTEIN 2025-02-28 16:08 [facility] 7.4 g/dl As of May 2023 testing method has changed, this may include reference ranges. ALKALINE PHOSPHATASE 2025-02-28 16:08 [facility] 88 iu/l As of May 2023 testing method has changed, this may include reference ranges. Result panel 2 NUCLEATED RED BLOOD CELLS AUTO 2025-03-17 03[facility] 0.0 /100wbc (missing) BASOPHILS # (AUTO) 2025-03-17 03:38 [facility] 0.0 10 3/ul (missing) NRBC ABSOLUTE COUNT (AUTO) 2025-03-17 03:38 [facility] 0.00 x10 3/ul (missing) EOSINOPHILS # (AUTO) 2025-03-17 03:38 [facility] 0.1 10 3/ul (missing) BILIRUBIN,TOTAL 2025-03-17 03:38 [facility] 0.4 mg /dl As of May 2023 testing method has changed, this may include reference ranges. MONOCYTES # (AUTO) 2025-03-17 03:38 [facility] 0.7 10 3/ul (missing) LYMPHOCYTES # (AUTO) 2025-03-17 03:38 [facility] 0.7 10 3/ul (missing) LACTIC ACID, VENOUS 2025-03-17 03:38 [facility] 1.3 mmol/l Y As of May 2023 testing method has changed, this may include reference ranges. ALBUMIN/GLOBULIN RATIO 2025-03-17 03:38 [facility] 1.4 (missing) (missing) CREATININE 2025-03-17 03:38 [facility] 1.5 mg/dl As of May 2023 testing method has changed, this may include reference ranges. ALKALINE PHOSPHATASE 2025-03-17 03:38 [facility] 100 iu/l As of May 2023 testing method has changed, this may include reference ranges. CHLORIDE 2025-03-17 03:38 [facility] 103 mmol/l As of May 2023 testing method has changed, this may include reference ranges. NEUTROPHILS # (AUTO) 2025-03-17 03:38 [facility] 11.9 10 3/ul (missing) GLUCOSE 2025-03-17 03:38 [facility] 119 mg/dl As of May 2023 testing method has changed, this may include reference ranges. HGB - HEMOGLOBIN 2025-03-17 03:38 [facility] 13.0 g /dl (missing) WHITE BLOOD COUNT 2025-03-17 03:38 [facility] 13.5 x10 3/ul (missing) RED CELL DISTRIBUTION WIDTH 2025-03-17 03:38 [facility] 13.8 % (missing) SODIUM 2025-03-17 03:38 [facility] 136 mmol/l Unknown ALT ALANINE AMINOTRANSFERASE 2025-03-17 03:38 [facility] 16 iu/l As of May 2023 testing method has changed, this may include reference ranges. BUN - BLOOD UREA NITROGEN 2025-03-17 03:38 [facility] 18 mg/dl As of May testing method has changed, this may include reference ranges. PLT - PLATELET COUNT 2025-03-17 03:38 [facility] 204 10 3/ul (missing) AST ASPARTATE AMINOTRANSFERASE 2025-03-17 03:38 [facility] 24 iu/l As of May 2023 testing method has changed, this may include reference ranges. CARBON DIOXIDE - CO2 2025-03-17 03:38 [facility] 27 mmol/l As of May 2023 testing method has changed, this may include reference ranges. MEAN CORPUSCULAR HEMOGLOBIN 2025-03-17 03:38 [facility] 28.0 pg (missing) GLOBULIN 2025-03-17 03:38 [facility] 3.1 g/dl (missing) MEAN CORPUSCULAR HGB CONC 2025-03-17 03:38 [facility] 30.8 g/dl (missing) ALBUMIN 2025-03-17 03:38 [facility] 4.3 g/dl As of May 2023 testing method has changed, this may include reference ranges. POTASSIUM 2025-03-17 03:38 [facility] 4.4 mmol/l As of May 2023 testing method has changed, this may include reference ranges. RED BLOOD COUNT 2025-03-17 03:38 [facility] 4.65 10 6/ul (missing) HCT - HEMATOCRIT 2025-03-17 03:38 [facility] 42.2 % (missing) GFR - MDRD 2025-03-17 03:38 [facility] 46 (rylie cramer) Social History date description facility 2024-12-18 00:00 Ex-smoker (finding) [facility] Vital Signs date measurement value units 2024-12-18 [...]
--- NOTE | 2025-03-17 06:11 | HISTORY & PHYSICAL EXAMINATION ---
Chief Complaint Chief Complaint Chief Complaint: shortness of breath History of Present Illness History of Present Illness HPI Comment/Other: 74 y old male with PMH HTN, Parkinson, hypothyroidism prsented with fever, cough and SOB for few days c/o wheezing On presentation, pt was hypoxic Labs showed leukocytosis Chest x ray showed b/l infiltrate In ER, pt was given IV Abx Pt is admitted due to acute hypoxic respiratory failure due to pneumonia Review of Systems Status of ROS: 10 or more systems reviewed and unremarkable except as noted in history and below PFSH Active Problems All Active Problems (Updated 03/17/25 @ 05:53 by Millicent Damian MD) Pneumonia (Acute) Pneumonia (Acute) Sepsis (Acute) Fall (Acute) Social History Social History Smoking Status: Never smoker Relationship: Meds/Allgy Home Medications Ambulatory Orders Medication Instructions Recorded Confirmed levothyroxine 25 mcg tablet 07/30/20 07/30/20 lithium carbonate 300 mg capsule 300 mg PO QPM 0 07/30/20 metoprolol succinate 25 mg 25 mg PO QPM 07/30/2007/30 tablet,extended release 24 hr nortriptyline 25 mg capsule 50 mg PO HS 07/30/2007/30 olanzapine 15 mg tablet (Zyprexa) 15 PO QPM 07/30/20 meclizine 25 mg tablet (Motion 50 mg (2 x 25 mg) PO Q6 H PRN 05/03/23 Sickness (meclizine)) Vertigo #25 tabs Allergies Allergies Allergy/AdvReac Type Severity Reaction Status Date / Time No Known Drug Allergies Allergy Verified 05/03/23 19:03 Exam Exam Vital Signs: Vital Signs x48h Temp Pulse Resp BP Pulse Ox 03/17/25 05:35 91 16 141/83 H 90 L 03/17/25 04:31 93 20 145/71 H 91 L 03/17/25 03:39 39.6 C H 97 20 157/84 H 91 L Constitutional normal general appearance HENMT normocephalic Eyes PERRL Chest inspection of chest normal Respiratory breath sounds equal bilaterally Cardiovascular normal heart rate noted Gastrointestinal abdomen normal to inspection Neurology no focal motor deficit noted Psychiatry mental status grossly normal Skin no rash Conclusion/Plan Problem List (1) Pneumonia: Plan: A: Acute hypoxic Respiratory failure Pneumonia HTN Parkinson disease Hypothyroidism Plan: Admit to med surg with tele Follow cultures Start IV Rocephin and zithromax Duo nebs q4h prn Cont metoprolol succ 25 mg po qd cont levothyroxine DVT prophylaxic: SCD Full code Pt is admitted as inpatient as more than 2 midnight stay is expected Lab Results 03/17/25 03:38 03/17/25 03:38
[2025-03-17] MEDS ORDERED: SODIUM CHLORIDE FLUSH 0.9% 10 ML SYRINGE IVP PRN (06:34)
[2025-03-17] MEDS ORDERED: ONDANSETRON 4 MG/2 ML VIAL IVP PRN (06:34)
[2025-03-17] MEDS: LEVOTHYROXINE 25 MCG TABLET PO SCH (07:11)
[2025-03-17] MEDS: SODIUM CHLORIDE FLUSH 0.9% 10 ML SYRINGE IVP SCH (08:17)
[2025-03-17] MEDS: METOPROLOL SUCCINATE 25 MG TABLET PO SCH (08:17)
--- NOTE | 2025-03-17 10:26 | CT Report ---
PROCEDURE: CT Head WO INDICATIONS: fall TECHNIQUE: CT of the head was performed, without intravenous contrast. Reformats: Coronal and sagittal. For radiation dose reduction, the following was used: automated exposure control, adjustment of mA and/or kV according to patient size. COMPARISON: 10/22/2022. Correlation also made with brain MRI, 12/08/2022 FINDINGS: Image quality: There is streak artifact seen through the skull base. CSF spaces: Basal cisterns are patent. No extra-axial fluid collections. Ventricles are normal in size and shape. Brain: No midline shift. No intracranial mass effect or hemorrhage. Simpson- white matter interface is normal. No significant periventricular white matter hypoattenuation or volume loss. Skull and face: Calvarium and visualized facial bones are intact, without suspicious lesions. Sinuses: Moderate mucosal thickening can be seen within the maxillary sinuses. No significant abnormal fluid can be seen within the mastoid air cells. IMPRESSION: No acute intracranial pathology. Focal maxillary sinus disease partially seen. Note: No significant discrepancy from the preliminary report. Reviewed by: Bhavin Gonzales MD on 03/17/2025 9:25 AM ANGELA Approved by: Bhavin Gonzales MD on 03/17/2025 9:25 AM ANGELA Station ID: [id number]
--- NOTE | 2025-03-17 10:28 | XRAY Report ---
PROCEDURE: XR Chest 1V INDICATIONS: Sepsis TECHNIQUE: One view of the chest was acquired. COMPARISON: 10/29/2020 FINDINGS: Surgical changes and devices: Epigastric clips are seen. Lungs and pleura: An incomplete inspiratory result is noted, with low lung volumes and crowding of the vascular markings. No focal infiltrates are seen. No large pneumothorax or large pleural effusion can be seen. Mediastinum: The aorta is prominent and tortuous. The cardiac contours are within normal limits. Bones and chest wall: No suspicious bony lesions. Age-appropriate degenerative changes are seen. Overlying soft tissues appear unremarkable. IMPRESSION: Low lung volumes, without an acute cardiopulmonary abnormality seen. Postoperative and degenerative changes are seen. Note: No significant discrepancy from the preliminary report. Reviewed by: Bhavin Gonzales MD on 03/17/2025 9:27 AM ANGELA Approved by: Bhavin Gonzales MD on 03/17/2025 9:27 AM ANGELA Station ID: [id number]
[2025-03-17] MEDS: COD LIVER OIL/ZINC OXIDE 113 GM TUBE TOP PRN (10:35)
[2025-03-18] MEDS ORDERED: BENZONATATE 100 MG CAPSULE PO PRN (07:39)
[2025-03-18 07:59] LABS: BASOPHILS % (AUTO) 0.4 %; EOSINOPHILS # (AUTO) 0.3 10^3/uL (0.0-0.7); HCT - HEMATOCRIT 38.9 % (42.0-52.0); HGB - HEMOGLOBIN 12.1 g/dL (14.0-18.0); LYMPHOCYTES # (AUTO) 1.7 10^3/uL (1.5-3.5); LYMPHOCYTES % (AUTO) 15.5 %; MEAN CORPUSCULAR HEMOGLOBIN 28.5 pg (27.0-31.0); MEAN CORPUSCULAR HGB CONC 31.1 g/dL (32.0-36.0); MEAN CORPUSCULAR VOLUME 91.5 fL (80.0-94.0); MEAN PLATELET VOLUME 9.5 fL (7.4-11.4); MONOCYTES # (AUTO) 0.8 10^3/uL (0.0-1.0); MONOCYTES % (AUTO) 7.6 %; NEUTROPHILS # (AUTO) 7.9 10^3/uL (1.5-6.6); PLT - PLATELET COUNT 177 10^3/uL (130-450); RED BLOOD COUNT 4.25 10^6/uL (4.70-6.10); WHITE BLOOD COUNT 10.8 x10^3/uL (4.8-10.8)
[2025-03-18 08:01] VITALS: O2SAT 94
[2025-03-18] MEDS: cefTRIAXone 1 GM in SODIUM CHLORIDE 0.9% MINIBAG 100 ML IV SCH (08:16)
[2025-03-18] MEDS: AZITHROMYCIN INJ 500 MG in SODIUM CHLORIDE 0.9% 250 ML IV SCH (08:17)
--- NOTE | 2025-03-18 10:52 | Discharge Summary ---
Discharge Summary Admit Date: 03/17/25 Discharge Date: 03/18/25 Discharging Provider: Dr Jean Zuniga MD Primary Care Provider: Dr Miah Resendiz DO Code Status: Attempt Resuscitation DIAGNOSES Admission Diagnoses: Community-acquired pneumonia Acute hypoxic respiratory failure HTN Parkinson's disease Hypothyroid Discharge Diagnoses with Status of Each Condition: Community-acquired pneumonia - Improved Acute hypoxic respiratory failure - Resolved HTN - Stable Parkinson's disease - Stable Hypothyroid - Stable HPI History of Present Illness: 74 y old male with PMH HTN, Parkinson, hypothyroidism prsented with fever, cough and SOB for few days c/o wheezing On presentation, pt was hypoxic Labs showed leukocytosis Chest x ray showed b/l infiltrate In ER, pt was given IV Abx Pt is admitted due to acute hypoxic respiratory failure due to pneumonia HOSPITAL COURSE Hospital Course: Patient was admitted with mild hypoxia and treated with IV ceftriaxone and Rocephin. He was able to wean off oxygen shortly after admission and continued to do well overnight and after confirming he was not hypoxic and able to manage his symptoms at home he was deemed to be medically safe for discharge by day 2 of hospital stay. ALLERGIES Allergies Allergy/AdvReac Type Severity Reaction Status Date / Time No Known Drug Allergies Allergy Verified 05/03/23 19:03 MEDICATIONS Ambulatory Orders Medication Instructions Recorded Confirmed lithium carbonate 300 mg capsule 150 mg PO QPM 0 03/18/25 nortriptyline 25 mg capsule 50 mg PO HS 07/30/2003/18 olanzapine 15 mg tablet (Zyprexa) 15 mg PO QPM 0 03/18/25 meclizine 25 mg tablet (Motion 50 mg (2 x 25 mg) PO Q6 H PRN 05/03/23 03/18/25 Sickness (meclizine)) Vertigo #25 tabs terbinafine HCl 250 mg tablet 250 mg PO DAILY 03/17/25 03/18/25 azithromycin 250 mg tablet 250 mg PO DAILY 4 days #4 t abs 03/18/25 benzonatate 100 mg capsule 100 mg PO TID PRN Cough #30 caps 03/18/25 bupropion HCl See Rx Instructions .Route . COMPLEX 03/18/25 03/18/25 cefdinir 300 mg capsule 300 mg PO BID 4 days #8 caps 03/18/25 escitalopram oxalate 20 mg tablet 20 mg PO DAILY 03/1803/18/25 levothyroxine 88 mcg tablet 88 mcg PO DAILY 03/18/25 0 03/18/25 (Unithroid) metoprolol tartrate 25 mg tablet 25 mg PO BID 03/18/25 03/18/25 simvastatin 40 mg tablet 40 mg PO QPM 03/18/25 PHYSICAL EXAM AT DISCHARGE Vital Signs: Vital Signs x48h Temp Pulse Resp BP Pulse Ox 03/18/25 12:08 36.6 C 81 20 140/80 H 94 03/18/25 08:00 36.5 C 77 20 130/79 94 General Appearance: positive No acute distress and Alert Respiratory: positive No respiratory distress and Breath sounds nml; negative Wheezes Cardiovascular: positive Regular rate & rhythm, No murmur and No gallop Abdomen: positive Non-tender, No organomegaly, Nml bowel sounds and No distention Skin: positive Color nml Extremities: positive Nml appearance Neurologic/Psychiatric: positive Oriented x3, CN's nml (2-12) and Motor nml LABS 03/18/25 07:53 03/17/25 03:38 DIAGNOSTIC IMAGING Diagnostic Imaging Results: Final report reviewed FOLLOW UP Follow Up: Follow-up with PCP TIME SPENT Time Spent in Discharge (Minutes): 32 Discharge Plan Discharge Patient Disposition: 01 Home, Self Care Condition: Fair Medically Cleared Date:: 03/18/25 Prescriptions: New benzonatate 100 mg Capsule 100 mg PO TID PRN (Reason: Cough) Qty: 30 0RF azithromycin 250 mg tablet 250 mg PO DAILY 4 Days Qty: 4 0RF Rx Instructions: start on day 2 of therapy cefdinir 300 mg capsule 300 mg PO BID 4 Days Qty: 8 0RF Continued nortriptyline 25 MG capsule 50 mg PO HS lithium carbonate 300 MG capsule 150 mg PO QPM olanzapine [Zyprexa] 15 MG tablet 15 mg PO QPM meclizine [Motion Sickness (meclizine)] 25 MG tablet 50 mg PO Q6H PRN (Reason: Vertigo) Qty: 25 0RF terbinafine HCl 250 mg tablet 250 mg PO DAILY levothyroxine [Unithroid] 88 mcg tablet 88 mcg PO DAILY metoprolol tartrate 25 mg tablet 25 mg PO BID simvastatin 40 mg tablet 40 mg PO QPM escitalopram oxalate 20 mg tablet 20 mg PO DAILY bupropion HCl See Rx Instructions .ROUTE .COMPLEX Rx Instructions: 300MG DAILY; Activity Restrictions: No Restrictions Diet: Regular Health Concerns: Gerber you were admitted with community-acquired pneumonia. You have done very well and should be able to recover safely at home. I want you to take 3 more days of antibiotics and follow-up with your PCP within a week if possible. Print Language: Lithuanian Patient Instructions: Pneumonia Dc
[2025-03-18 12:09] VITALS: BP 140/80; TEMP 97.9
== END 2025-03-18 13:10 | disposition home or self-care (01) | DRG 871 ==
LOC: ED 03:31 → MS2 05:51
PROVIDERS: ADMIT Internal Medicine; ATTEND Internal Medicine
DX: Z91.81 History of falling; I10 Essential (primary) hypertension; E03.9 Hypothyroidism, unspecified; A41.9 Sepsis, unspecified organism; R09.02 Hypoxemia; J96.01 Acute respiratory failure with hypoxia; G20.A1 Parkinson's disease without dyskinesia, without mention of fluctuations; J18.9 Pneumonia, unspecified organism